=== PATIENT | female | born 1940 | race Caucasian/White ===

== ENCOUNTER → 2019-11-29 12:57 | Outpatient (BNVA) | payer MEDICARE, SELFPAY | PROVIDERS: Visit Provider Specialist | DX: R41.9 Unspecified symptoms and signs involving cognitive functions and awareness (principal); F03.90 Unspecified dementia, unspecified severity, without behavioral disturbance, psychotic disturbance, mood disturbance, and anxiety; R42 Dizziness and giddiness; R41.3 Other amnesia | CPT/HCPCS: 96116; 99204 ==